=== PATIENT | female | born 1990 | race African-American/Black ===

== ENCOUNTER 2017-04-24 14:13 | Emergency (ER) | payer OTHER ==
[~2017-04-24] VITALS: Ht 157.5 cm; Wt 69.1 kg
[~2017-04-24 14:13] MED LIST: TAMIFLU75 MG PO
[2017-04-24 14:45] LABS: HEMATOCRIT 40.1 % (36.0-46.0); MCH 28.9 PG (29.0-34.0); MCHC 34.4 G/DL (30.0-36.0); MCV 84.1 FL (83-99); MEAN PLAT.VOLUME 9.8 uM^3 (9.5-12.4); PLATELET COUNT 258 K/uL (156-360); RBC DIS.WIDTH-CV 12.2 % (11.8-14.6); RBC DIS.WIDTH-SD 37.2 % (39-53); RED BLOOD COUNT 4.77 M/uL (3.80-5.20); WHITE BLOOD COUNT 7.2 K/uL (4.1-10.2)
[2017-04-24 14:52] LABS: CHLORIDE 109 mEq/L (99-109); POTASSIUM 3.6 mEq/L (3.7-5.4); SODIUM 140 mEq/L (136-147)
[2017-04-24 14:54] LABS: GLUCOSE 107 mg/dL (70-99)
[2017-04-24 14:55] LABS: ANION GAP 8 MEQ/L (2-14)
[2017-04-24 14:58] LABS: GFR ESTIMATE (CALCULATED) > 59 mL/min/
[2017-04-24 14:59] LABS: UREA NITROGEN (BUN) 9 mg/dL (9-23)
[2017-04-24 15:33] LABS: ADD MIUA? YES; BILIRUBIN NEGATIVE; BLOOD NEGATIVE; COLOR YELLOW ((YELLOW)); GLUCOSE (STRIP) NEGATIVE; KETONES NEGATIVE; LEUKOCYTES NEGATIVE; NITRITE NEGATIVE; PROTEIN (STRIP) 30; SPECIFIC GRAVITY 1.026 (1.000-1.030); UROBILINOGEN 0.2 MG/DL (0.2-1.0)
[2017-04-24 15:44] LABS: BACTERIA RARE /HPF; EPITHELIAL CELLS RARE /HPF; MUCUS 3+ /LPF; RED BLOOD CELLS 0-5 /HPF (0-5); UCUL ADDED? YES
[2017-04-24 17:24] LABS: TOTAL BILIRUBIN 0.6 mg/dL (0.0-1.0)
[2017-04-24 17:25] LABS: ALKALINE PHOSPHATASE 86 IU/L (3-129)
[2017-04-24 17:28] LABS: DIRECT BILIRUBIN 0.2 mg/dL (0.0-0.3)
[2017-04-24 17:29] LABS: LIPASE 11 U/L (1.0-51.0)
[2017-04-24 17:35] LABS: QUANTITATIVE HCG < 4.0 MIU/ML
[2017-04-24] MEDS ORDERED: LOMOTIL TABLET1 EACH PO (18:10)
[2017-04-24] MEDS ORDERED: BENTYL20 MG PO (18:10)
[2017-04-24 18:42] VITALS: BP 112/78
== END 2017-04-24 18:44 | disposition home or self-care (01) ==
LOC: EME 14:13
DX: K52.9 Noninfective gastroenteritis and colitis, unspecified (principal); R42 Dizziness and giddiness; R53.1 Weakness
CPT/HCPCS: 80048; 80076; 81003; 83690; 84702; 85027; 87086; 87493; 87506; 99281; 99285